=== PATIENT | male | born 1970 | race Caucasian/White ===

== ENCOUNTER 2016-05-24 13:33 | Emergency (ER) | payer MEDICAID ==
[~2016-05-24] VITALS: Ht 177.8 cm; Wt 72.3 kg
[~2016-05-24 13:33] MED LIST: ALBU10PO; CLON-364; CYCL5TAB10 PO; HYDROXIZINE PO; IPRA14.7; OXYC10TA6 PO; TEMA15CA
[2016-05-24 13:34] VITALS: BP 113/72
[2016-05-24] MEDS ORDERED: ALBUTEROL/IPRATROPIUM 2.5MG/0.5MG, 3 ML NPPB ONE (14:30)
[2016-05-24] MEDS ORDERED: ALBUTEROL/IPRATROPIUM 2.5MG/0.5MG, 3 ML ONE (14:42)
== END 2016-05-24 15:18 | disposition home or self-care (01) ==
LOC: ED 14:53
DX: J20.8 Acute bronchitis due to other specified organisms (principal); J01.00 Acute maxillary sinusitis, unspecified; J01.10 Acute frontal sinusitis, unspecified; J45.909 Unspecified asthma, uncomplicated; J44.9 Chronic obstructive pulmonary disease, unspecified; M54.9 Dorsalgia, unspecified; G89.29 Other chronic pain; M81.0 Age-related osteoporosis without current pathological fracture; Z87.01 Personal history of pneumonia (recurrent)
CPT/HCPCS: 71020; 94640; 99284; J7512; J7620

== ENCOUNTER 2016-09-25 16:45 | Emergency (ER) | payer MEDICAID ==
[~2016-09-25] VITALS: Ht 177.8 cm; Wt 72.1 kg
[2016-09-25 16:47] VITALS: BP 114/70
== END 2016-09-25 18:04 | disposition home or self-care (01) ==
LOC: ED 17:58
DX: S93.511A Sprain of interphalangeal joint of right great toe, initial encounter (principal); Z88.2 Allergy status to sulfonamides; Y99.8 Other external cause status; W18.2XXA Fall in (into) shower or empty bathtub, initial encounter; Y93.E1 Activity, personal bathing and showering; Y92.009 Unspecified place in unspecified non-institutional (private) residence as the place of occurrence of the external cause

== ENCOUNTER 2018-01-07 14:23 | Emergency (ER) | payer MEDICAID ==
[~2018-01-07] VITALS: Ht 177.8 cm; Wt 79.0 kg
[~2018-01-07 14:23] MED LIST changes: -CLON-364; +CLON0.5T11
[2018-01-07 14:56] VITALS: BP 109/66
== END 2018-01-07 15:57 | disposition home or self-care (01) ==
LOC: ED 15:40
DX: M79.652 Pain in left thigh (principal); M25.552 Pain in left hip; F41.1 Generalized anxiety disorder; J44.9 Chronic obstructive pulmonary disease, unspecified; F17.200 Nicotine dependence, unspecified, uncomplicated
CPT/HCPCS: 72170; 99284

== ENCOUNTER 2018-07-29 15:42 | Inpatient (IN) | payer OTHER ==
[~2018-07-29] VITALS: Ht 177.8 cm; Wt 84.3 kg
[2018-07-29] MEDS ORDERED: ASPIRIN 81 MG TABLET CHEW PO ONE (16:00)
[2018-07-29 16:17] LABS: BASOPHILS % (AUTO) 0 % (0-1); EOSINOPHILS # (AUTO) 0.03 x10^3/uL (0-0.4); EOSINOPHILS % (AUTO) 0 % (1-7); LYMPHOCYTES # (AUTO) 1.49 x10^3/uL (1-3.4); LYMPHOCYTES % (AUTO) 12 % (22-44); MD NO; MEAN CORPUSCULAR HEMOGLOBIN 30.4 pg (27.5-34.5); MEAN CORPUSCULAR HGB CONC 33.5 g/dL (33.2-36.2); MEAN CORPUSCULAR VOLUME 90.6 fL (81-97); MEAN PLATELET VOLUME 9.3 fL (7.4-10.4); MONOCYTES # (AUTO) 0.42 x10^3/uL (0.2-0.8); MONOCYTES % (AUTO) 3 % (2-9); NEUTROPHILS % (AUTO) 85 % (42-75); PLATELET COUNT 177 x10^3/uL (130-400); RED BLOOD COUNT 4.83 x10^6/uL (4.38-5.82); RED CELL DISTRIBUTION WIDTH 12.1 % (9.4-14.8)
[2018-07-29 16:30] LABS: ALANINE AMINOTRANSFERASE 30 U/L (12-78); ALBUMIN 4.3 g/dL (3.4-5.0); ANION GAP 6 mmol/L (5-15); CALCIUM 9.6 mg/dL (8.5-10.1); CHLORIDE 107 mmol/L (98-107); CREATININE 0.95 mg/dL (0.7-1.3)
[2018-07-29 16:34] LABS: ALKALINE PHOSPHATASE 62 U/L (45-117); BILIRUBIN,TOTAL 0.5 mg/dL (0.2-1.0); TOTAL PROTEIN 7.3 g/dL (6.4-8.2); TROPONIN I < 0.015 ng/mL (0.000-0.045)
--- NOTE | 2018-07-29 18:33 | NUR ---
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
--- NOTE | 2018-07-29 18:52 | NUR ---
CONTACT WITH PT, 47 YR OLD MALE HERE WITH C/O "CHEST PAIN ALMOST MY LUNGS HURT. HAS BEEN FOR 2 DAYS. ALL OVER CHEST AND AROUND IT. SOMETIMES IT FEELS LIKE ITS BURNING" DR MONROE AT BEDSIDE TO EVAL PT
[2018-07-29] MEDS ORDERED: ASPIRIN 81 MG TABLET CHEW ONE (18:54)
--- NOTE | 2018-07-29 19:10 | NUR ---
REPORT RECEIVED FROM APPLE/VISHAL GONZALEZ.
[2018-07-29] MEDS ORDERED: CYCL5TAB PO (19:13)
[2018-07-29] MEDS ORDERED: ALBU8.5H8 INH (19:13)
--- NOTE | 2018-07-29 19:13 | NUR ---
REPORT TO PILI GONZALEZ
--- NOTE | 2018-07-29 20:01 | NUR ---
US AT BEDSIDE NOW.
[2018-07-29] MEDS ORDERED: ONDANSETRON 2MG/ML, 2ML IVPush PRN (20:30)
[2018-07-29] MEDS ORDERED: BISACODYL 10 MG SUPP PR PRN (20:30)
[2018-07-29] MEDS ORDERED: SODIUM CHLORIDE FLUSH 10ML SYR IVF PRN (20:30)
--- NOTE | 2018-07-29 20:40 | NUR ---
REPORT GIVEN TO NADYA GONZALEZ. ALL QUESTIONS ANSWERED.
[2018-07-29 21:10] VITALS: BP 124/79
[2018-07-29] MEDS: LACTATED RINGERS 1,000 ML IV SCH (21:30)
[2018-07-29] MEDS: HEPARIN 5,000 UNITS/ML, 1ML SQ SCH (21:30)
[2018-07-29] MEDS: NICOTINE 14MG/24 HR PATCH.TD24 TD SCH (21:31)
[2018-07-29] MEDS: morphine SULFATE 10 MG/ML, 1ML IVPush PRN ×2 (21:42→22:25)
[2018-07-30] MEDS: LACTATED RINGERS 1,000 ML IV SCH ×3 (02:13→21:09)
[2018-07-30] MEDS: morphine SULFATE 10 MG/ML, 1ML IVPush PRN ×6 (02:38→23:45)
[2018-07-30 02:42] VITALS: BP 103/71
[2018-07-30 05:13] LABS: BASOPHILS # (AUTO) 0.03 x10^3/uL (0-0.1); BASOPHILS % (AUTO) 0 % (0-1); EOSINOPHILS # (AUTO) 0.04 x10^3/uL (0-0.4); EOSINOPHILS % (AUTO) 0 % (1-7); LYMPHOCYTES # (AUTO) 1.42 x10^3/uL (1-3.4); LYMPHOCYTES % (AUTO) 14 % (22-44); MD NO; MEAN CORPUSCULAR HEMOGLOBIN 30.4 pg (27.5-34.5); MEAN CORPUSCULAR HGB CONC 33.7 g/dL (33.2-36.2); MEAN CORPUSCULAR VOLUME 90.1 fL (81-97); MEAN PLATELET VOLUME 9.5 fL (7.4-10.4); MONOCYTES # (AUTO) 1.11 x10^3/uL (0.2-0.8); MONOCYTES % (AUTO) 11 % (2-9); NEUTROPHILS # (AUTO) 7.85 x10^3/uL (1.8-6.8); NEUTROPHILS % (AUTO) 75 % (42-75); PLATELET COUNT 152 x10^3/uL (130-400); RED BLOOD COUNT 4.66 x10^6/uL (4.38-5.82); RED CELL DISTRIBUTION WIDTH 12.1 % (9.4-14.8)
[2018-07-30 05:19] LABS: CHLORIDE 108 mmol/L (98-107)
[2018-07-30] MEDS: HEPARIN 5,000 UNITS/ML, 1ML SQ SCH ×3 (05:29→21:08)
[2018-07-30 05:30] LABS: ALANINE AMINOTRANSFERASE 25 U/L (12-78); ALBUMIN 3.6 g/dL (3.4-5.0); ALKALINE PHOSPHATASE 53 U/L (45-117); ANION GAP 5 mmol/L (5-15); BILIRUBIN,TOTAL 0.6 mg/dL (0.2-1.0); CALCIUM 9.2 mg/dL (8.5-10.1); CHOL/HDL RATIO 3.8; CHOLESTEROL, TOTAL 134 mg/dL (140-239); CREATININE 0.94 mg/dL (0.7-1.3); HDL CHOL % 26 % (26-37); HDL CHOLESTEROL (DIRECT) 35 mg/dL (40-60); LDL CHOLESTEROL,CALCULATED 78 mg/dL (54-169); LDL/HDL RATIO 2.2 (0.5-3.0); TOTAL PROTEIN 6.6 g/dL (6.4-8.2); TRIGLYCERIDES 104 mg/dL (50-200); VLDL CHOLESTEROL 21 mg/dL (0-25)
[2018-07-30 06:26] VITALS: BP 106/72
[2018-07-30 13:20] VITALS: BP 104/68
[2018-07-30 19:35] VITALS: BP 115/70
[2018-07-30] MEDS: NICOTINE 14MG/24 HR PATCH.TD24 TD SCH (21:08)
[2018-07-31 02:00] VITALS: BP 106/67
[2018-07-31] MEDS: LACTATED RINGERS 1,000 ML IV SCH ×3 (03:37→20:13)
[2018-07-31] MEDS: morphine SULFATE 10 MG/ML, 1ML IVPush PRN ×6 (03:37→20:13)
[2018-07-31] MEDS: HEPARIN 5,000 UNITS/ML, 1ML SQ SCH ×3 (05:28→21:24)
[2018-07-31 06:18] LABS: BASOPHILS # (AUTO) 0.02 x10^3/uL (0-0.1); BASOPHILS % (AUTO) 0 % (0-1); EOSINOPHILS # (AUTO) 0.04 x10^3/uL (0-0.4); EOSINOPHILS % (AUTO) 0 % (1-7); LYMPHOCYTES # (AUTO) 1.59 x10^3/uL (1-3.4); LYMPHOCYTES % (AUTO) 17 % (22-44); MD NO; MEAN CORPUSCULAR HEMOGLOBIN 30.2 pg (27.5-34.5); MEAN CORPUSCULAR HGB CONC 33.5 g/dL (33.2-36.2); MEAN CORPUSCULAR VOLUME 90.1 fL (81-97); MEAN PLATELET VOLUME 9.9 fL (7.4-10.4); MONOCYTES % (AUTO) 11 % (2-9); NEUTROPHILS # (AUTO) 6.81 x10^3/uL (1.8-6.8); NEUTROPHILS % (AUTO) 72 % (42-75); PLATELET COUNT 155 x10^3/uL (130-400); RED BLOOD COUNT 4.43 x10^6/uL (4.38-5.82); RED CELL DISTRIBUTION WIDTH 12.4 % (9.4-14.8)
[2018-07-31 06:25] VITALS: BP 107/69
[2018-07-31 06:38] LABS: CHLORIDE 106 mmol/L (98-107)
[2018-07-31 06:47] LABS: ALANINE AMINOTRANSFERASE 23 U/L (12-78); ALBUMIN 3.6 g/dL (3.4-5.0); ALKALINE PHOSPHATASE 51 U/L (45-117); ANION GAP 6 mmol/L (5-15); BILIRUBIN,TOTAL 0.6 mg/dL (0.2-1.0); CREATININE 0.87 mg/dL (0.7-1.3); TOTAL PROTEIN 6.7 g/dL (6.4-8.2)
[2018-07-31 12:12] VITALS: BP 110/62
[2018-07-31 19:43] VITALS: BP 120/67
[2018-07-31] MEDS: NICOTINE 14MG/24 HR PATCH.TD24 TD SCH (20:14)
[2018-08-01] MEDS: morphine SULFATE 10 MG/ML, 1ML IVPush PRN ×2 (01:47→06:15)
[2018-08-01] MEDS: LACTATED RINGERS 1,000 ML IV SCH ×2 (01:49→08:50)
[2018-08-01 02:10] VITALS: BP 96/60
[2018-08-01 05:22] LABS: BASOPHILS # (AUTO) 0.03 x10^3/uL (0-0.1); BASOPHILS % (AUTO) 0 % (0-1); EOSINOPHILS # (AUTO) 0.04 x10^3/uL (0-0.4); EOSINOPHILS % (AUTO) 1 % (1-7); LYMPHOCYTES # (AUTO) 1.38 x10^3/uL (1-3.4); LYMPHOCYTES % (AUTO) 18 % (22-44); MD NO; MEAN CORPUSCULAR HEMOGLOBIN 29.5 pg (27.5-34.5); MEAN CORPUSCULAR HGB CONC 32.8 g/dL (33.2-36.2); MEAN CORPUSCULAR VOLUME 90.1 fL (81-97); MEAN PLATELET VOLUME 9.4 fL (7.4-10.4); MONOCYTES % (AUTO) 12 % (2-9); NEUTROPHILS % (AUTO) 70 % (42-75); PLATELET COUNT 142 x10^3/uL (130-400); RED BLOOD COUNT 4.44 x10^6/uL (4.38-5.82); RED CELL DISTRIBUTION WIDTH 12.3 % (9.4-14.8)
[2018-08-01 05:36] LABS: ALBUMIN 3.4 g/dL (3.4-5.0); ANION GAP 4 mmol/L (5-15); CHLORIDE 106 mmol/L (98-107)
[2018-08-01 05:40] LABS: ALANINE AMINOTRANSFERASE 23 U/L (12-78); ALKALINE PHOSPHATASE 51 U/L (45-117); BILIRUBIN,TOTAL 0.7 mg/dL (0.2-1.0); TOTAL PROTEIN 6.7 g/dL (6.4-8.2)
[2018-08-01] MEDS: HEPARIN 5,000 UNITS/ML, 1ML SQ SCH (06:12)
[2018-08-01 07:44] VITALS: BP 114/57
== END 2018-08-01 10:10 | disposition home or self-care (01) | DRG 440 ==
LOC: ED 18:39 → EDIP 20:16 → 4NOR 20:52 → DCLOUNGE 08-01 10:00
PROVIDERS: ADMIT Family Medicine; ATTEND Family Medicine
DX: K85.90 Acute pancreatitis without necrosis or infection, unspecified (principal); J44.9 Chronic obstructive pulmonary disease, unspecified; G89.29 Other chronic pain; F17.210 Nicotine dependence, cigarettes, uncomplicated; M81.0 Age-related osteoporosis without current pathological fracture; F10.20 Alcohol dependence, uncomplicated; M54.9 Dorsalgia, unspecified; D64.9 Anemia, unspecified; Z82.49 Family history of ischemic heart disease and other diseases of the circulatory system; Z88.2 Allergy status to sulfonamides
CPT/HCPCS: 36415; 71046; 76700; 80053; 80061; 83690; 83735; 84100; 84484; 85025; 93005; G0378; J1644; J2405; J2270; J7120